=== PATIENT | male | born 1990 | race African-American/Black ===

== ENCOUNTER → 2024-03-26 | Day surgery (SDC) | payer MEDICARE ==
[~2024-03-26] MED LIST: BACLOFEN20 MG PO; CYMBALTA30 MG PO; EPHEDRINE SULFATE INJ 50 MG/ML VIAL ONE; FENTANYL CITRATE/PF 100MCG/2 ML INJ ONE; IOPAMIDOL 610MG/1ML 300 MG/ML VIAL IV ONE; LIDOCAINE HCL 2% LOCAL INJ 5 ML SDV VIAL INJ ONE; LINZESS72 MCG PO; METHENAMINE HIPP1 GM PO; MIDAZOLAM HCL 2 MG/2 ML VIAL ONE; MOTEGRITY1 MG PO; MYRBETRIQ50 MG PO; ONDANSETRON HCL INJ 2MG/ML 2ML 2 MG/ML VIAL ONE; PROPOFOL IV EMULSION 10 MG/ML 20 ML VIAL ONE; SEVOFLURANE INHAL SOLN 250 ML PEN BTL ONE
[2024-03-26 08:51] LABS: BASOPHILS % 0.7 % (0.0-1.0); EOSINOPHILS # (AUTO) 0.1 (0.0-0.4); EOSINOPHILS % 1.6 % (0.0-6.0); HEMATOCRIT 36.3 % (38.2-49.6); HEMOGLOBIN 11.3 g/dL (14.0-18.0); LYMPHOCYTES # (AUTO) 1.6 (1.0-3.2); LYMPHOCYTES % 26.7 % (18.0-39.1); MEAN CORPUSCULAR HEMOGLOBIN 21.7 pg (28-32); MEAN CORPUSCULAR HGB CONC 31.1 g/dL (31-35); MEAN CORPUSCULAR VOLUME 69.7 fL (81-99); MONOCYTES # (AUTO) 0.6 (0.2-0.8); MONOCYTES % 9.4 % (4.4-11.3); NEUTROPHILS # (AUTO) 3.8 (2.1-6.9); NEUTROPHILS % 61.4 % (38.7-80.0); PLATELET COUNT 241 x10e3/uL (140-360); RED BLOOD COUNT 5.21 x10e6/uL (4.3-5.7); RED CELL DISTRIBUTION WIDTH 16.9 % (11.7-14.4); WHITE BLOOD COUNT 6.14 x10e3/uL (4.8-10.8)
[2024-03-26 09:08] LABS: ANION GAP 10.7 mmol/L (8-16); CREATININE, SERUM 0.59 mg/dL (0.72-1.25); POTASSIUM 3.7 mmol/L (3.5-5.1)
[2024-03-26] MEDS: LACTATED RINGER'S 1,000 ML ONE (09:31)
[2024-03-26] MEDS: CEFTRIAXONE 1 GM VIAL ONE (09:32)
[2024-03-26] MEDS: GENTAMICIN 80MG/NS 100 ML 200 ML IV ONE (09:32)
[2024-03-26 14:35] VITALS: BP 120/72; PULSE 61; RESP 18; O2SAT 97
[2024-03-27 09:12] LABS: CALCIUM 9.2 mg/dL (8.7-10.2)
== END | disposition home or self-care (01) ==
LOC: OR 07:30
PROVIDERS: ATTEND Urology
DX: N20.0 Calculus of kidney (principal); N39.0 Urinary tract infection, site not specified; R33.9 Retention of urine, unspecified; Z43.5 Encounter for attention to cystostomy; N32.89 Other specified disorders of bladder; N32.81 Overactive bladder; G82.50 Quadriplegia, unspecified
CPT/HCPCS: 36415; 50590; 51705; 80048; 83970; 84550; 85025; 87086; C1758; J0696; J1580; J2001; J2250; J2405; J2704; J3010; J7121; Q9967